=== PATIENT | female | born 1980 | race Caucasian/White ===

== ENCOUNTER 2023-07-11 07:35 | Day surgery (SDC) | payer OTHER ==
[~2023-07-11] VITALS: Ht 154.9 cm; Wt 79.4 kg
[2023-07-11] MEDS ORDERED: fentaNYL citrate 0.05 MG/ML VIAL ONE (08:00)
[2023-07-11] MEDS ORDERED: diphenhydrAMINE 50 MG/ML VIAL ONE (08:00)
[2023-07-11] MEDS ORDERED: MIDAZOLAM 5 MG/5 ML VIAL ONE (08:00)
[2023-07-11] MEDS ORDERED: MIDAZOLAM 5 MG/5 ML VIAL IV ONE (11:25)
[2023-07-11] MEDS ORDERED: diphenhydrAMINE 50 MG/ML VIAL IVP ONE (11:25)
[2023-07-11] MEDS ORDERED: fentaNYL citrate 0.05 MG/ML VIAL IVP ONE (11:25)
== END 2023-07-11 10:50 | disposition home or self-care (01) ==
LOC: MOR 07:35 → MMU 07:36 → MOR 10:50
PROVIDERS: ATTEND Internal Medicine Gastroenterology
DX: K21.9 Gastro-esophageal reflux disease without esophagitis (principal); K29.70 Gastritis, unspecified, without bleeding; K44.9 Diaphragmatic hernia without obstruction or gangrene; E78.00 Pure hypercholesterolemia, unspecified; M32.9 Systemic lupus erythematosus, unspecified; E66.09 Other obesity due to excess calories; Z68.32 Body mass index [BMI] 32.0-32.9, adult; Z79.899 Other long term (current) drug therapy
CPT/HCPCS: 43239; 82948; J1200; J2250; J3010